=== PATIENT | male | born 1995 | race Two or more races ===

== ENCOUNTER 2024-11-10 17:59 | Emergency (ER) | payer OTHER ==
[~2024-11-10] VITALS: Ht 182.9 cm; Wt 137.9 kg
[2024-11-10] MEDS ORDERED: FAMOTIDINE/PF 20 MG/2 ML VIAL ONE (19:22)
[2024-11-10] MEDS ORDERED: ONDANSETRON HCL 2 MG/ML VIAL ONE (19:22)
[2024-11-10] MEDS ORDERED: FAMOtidine 10 MG/ML (4ML VIAL) IV PUSH ONE (19:30)
[2024-11-10] MEDS ORDERED: ONDANSETRON HCL 2 MG/ML VIAL IM ONE (19:30)
[2024-11-10 19:42] LABS: HEMATOCRIT 42.3 % (39.0-48.0); MEAN CELL VOLUME 77.8 fL (80.0-100.00); MEAN CORPUSCULAR HEMOGLOBIN 25.7 pg (27.00-32.0); PLATELET COUNT 189 K/uL (150-450); RED BLOOD COUNT 5.43 M/uL (4.00-6.00); RED CELL DISTRIBUTION WIDTH 13.9 % (11.5-14.5)
[2024-11-10] MEDS ORDERED: 0.9 % SODIUM CHLORIDE 1,000 ML IV ONE (20:30)
[2024-11-10] MEDS ORDERED: BUTALB/ACETAMINOPHEN/CAFFEINE 1 TAB TABLET PO ONE (20:45)
[2024-11-10] MEDS ORDERED: ZOFRAN8 MG PO (22:59)
[2024-11-10] MEDS ORDERED: PEPCID AC20 MG PO (22:59)
[2024-11-10] MEDS ORDERED: AZITHROMYCIN500 MG PO (23:12)
== END 2024-11-10 23:38 | disposition home or self-care (01) ==
LOC: ER 18:02
PROVIDERS: General Practice
DX: K52.9 Noninfective gastroenteritis and colitis, unspecified (principal); R53.81 Other malaise; Z20.822 Contact with and (suspected) exposure to COVID-19

== ENCOUNTER 2025-05-04 21:40 | Emergency (ER) | payer OTHER ==
[~2025-05-04] VITALS: Ht 190.5 cm; Wt 122.5 kg
[~2025-05-04 21:40] MED LIST: AZITHROMYCIN500 MG PO; PEPCID AC20 MG PO; ZOFRAN8 MG PO
[2025-05-05] MEDS ORDERED: ACETAMINOPHEN 500 MG GEL..CAP PO STA (00:27)
[2025-05-05] MEDS ORDERED: DIPHENHYDRAMINE HCL 12.5 MG/5 ML BLIST.PACK PO STA (00:28)
[2025-05-05] MEDS ORDERED: METHYLPREDNISOLONE SOD SUCC 125 MG VIAL IV STA (00:28)
[2025-05-05] MEDS ORDERED: GUAIFENESIN 200 MG/10 ML BLIST.PACK PO STA (00:28)
[2025-05-05] MEDS ORDERED: ALBUTEROL SULFATE 3 ML/2.5 MG AMPUL.NEB IH SCH (00:30)
[2025-05-05 01:30] LABS: BASO % 0.3 % (0.1-1.2); EOS # 0.09 (0.04-0.54); EOS % 1.3 % (0.7-7.0); LYMPH # 0.94 (1.18-3.74); LYMPH % 13.9 % (19.3-53.1); MEAN PLATELET VOLUME 11.40 fl (9.4-12.4); MONO # 1.03 (0.24-0.82); NEUT # 4.63 (1.56-6.13); NEUT % 68.3 % (34.0-71.1); RED CELL DISTRIBUTION WIDTH 12.9 % (11.6-14.4)
[2025-05-05 01:34] LABS: MONO % 15.2 % (4.7-12.5)
[2025-05-05 01:58] LABS: COVID-19 AG NEGATIVE (NEGATIVE)
[2025-05-05] MEDS ORDERED: ZYNCOF 20-400120 ML PO (02:55)
[2025-05-05] MEDS ORDERED: PHENAGIL TABLE1 EACH PO (02:55)
[2025-05-05] MEDS ORDERED: ALBUTEROL2.5 MG/3 M IH (02:55)
[2025-05-05] MEDS ORDERED: CORTISPORIN-TC10 M1 OT (02:56)
== END 2025-05-05 03:14 | disposition home or self-care (01) ==
LOC: ER 21:40
PROVIDERS: General Practice
DX: J10.1 Influenza due to other identified influenza virus with other respiratory manifestations (principal); R50.9 Fever, unspecified; H60.8X1 Other otitis externa, right ear; Z20.822 Contact with and (suspected) exposure to COVID-19